=== PATIENT | female | born 2000 | race Two or more races ===

== ENCOUNTER 2024-07-20 16:00 | Observation (INO) | payer MEDICAID ==
[2024-07-20] MEDS ORDERED: PREN-96 PO (16:56)
== END 2024-07-20 17:48 | disposition home or self-care (01) ==
LOC: LDRP 16:00 → UNDOADMOB 16:00 → LDRP 16:22 → UNDODISOB 17:48
PROVIDERS: ADMIT Obstetrics & Gynecology; ATTEND Obstetrics & Gynecology
DX: O69.81X0 Labor and delivery complicated by cord around neck, without compression, not applicable or unspecified (principal); Z3A.38 38 weeks gestation of pregnancy; Z87.891 Personal history of nicotine dependence
CPT/HCPCS: 59025; 76818; 81002; 94760; G0378

== ENCOUNTER 2024-07-23 11:23 | Observation (INO) | payer MEDICAID ==
[~2024-07-23] VITALS: Ht 152.4 cm; Wt 59.0 kg
[~2024-07-23 11:23] MED LIST: PREN-96 PO
== END 2024-07-23 12:58 | disposition home or self-care (01) ==
LOC: UNDOADMOB 11:23 → LDRP 11:23
PROVIDERS: ADMIT Obstetrics & Gynecology; ATTEND Obstetrics & Gynecology
DX: O69.81X0 Labor and delivery complicated by cord around neck, without compression, not applicable or unspecified (principal); Z3A.39 39 weeks gestation of pregnancy; Z79.899 Other long term (current) drug therapy; Z98.890 Other specified postprocedural states
CPT/HCPCS: 59025; 76818; 81002; 94760; G0378

== ENCOUNTER 2024-07-27 07:50 | Inpatient (IN) | payer MEDICAID ==
[~2024-07-27] VITALS: Ht 157.5 cm; Wt 61.2 kg
--- NOTE | 2024-07-27 16:20 | DVHHP2 ---
OB CC & HPI Date Date of Admission: Jul 27, 2024 Patient Identification: : 2 Para: 0 EDC: Jul 29, 2024 EGA: 39+wks Chief Complaints: Reason for admission: induction of labor Indication for induction: other (pt desires due to nuchal cord) Admission Nurse Assessment Rev: No History of Present Complaints pt is admitted for iol due to nuchal cord,pt desires inuction .she denies vag bleeding or rom Past Medical History Cardiac: No pertinent Hx Pulmonary: No pertinent Hx Central Nervous System: No pertinent Hx GI: No pertinent Hx Hemotology/Oncology: No pertinent Hx Hepatobiliary: No pertinent Hx Psychiatric: No pertinent Hx Musculoskeletal: No pertinent Hx Rheumotologic: No pertinent Hx Infectious Disease: No peritnent Hx ENT: No pertinent Hx Renal/: No pertinent Hx Endocrine: No pertinent Hx Dermatology: No pertinent Hx Past Surgical History: No pertinent Hx OB History OB History Care: Good Care Ultrasounds: No ultrasounds, Normal mid trimester US Obstetrical Complications: None Medical Complications: None Allergies: Coded Allergies: NO KNOWN ALLERGIES (Unverified , 07/23/24) Home Meds Reported Medications Vit W/ Ferrous Fumara ( One Daily) Daily Tab, 1 TAB PO DAILY, #90 TAB 3 Refills 07/20/24 Family & Social History Family/Social History Blood Type: Unknown Rubella: unknown RPR/VDRL: Negative GBS Status: Negative HBsAG: Negative Review of Systems Constitutional: No symptom reported Ears, Nose, & Throat: No symptom reported Eyes: No symptom reported Pulmonary/Respiratory: No symptom reported Cardiovascular: No symptom reported Gastrointestinal: No symptom reported Genitourinary: No symptom reported Musculoskeletal: No symptom reported Skin: No symptom reported Psychiatric: No symptom reported Endocrine: No symptom reported Hemotologic/Lymphatic: No symptom reported OB Admission Exam Physical Exam HEENT: TMs Normal, Fontanelles Normal, Nasal Mucosa Normal, Eyes non-injected, Oropharynx Normal, PERRLA, Moist Membranes, EOMI Heart: Rhythm Normal Lungs: Clear Abdomen: Non tender Extremities: Normal Reflexes: Normal Cervical Dilatation: Fingertip Effacement: 25% Station: -3 Membranes: Intact Heart Rate: 130's Accelerations: Accelerations Present Decelerations: No Decelerations Short Term Variability: Present Longterm Variability: Average (6-25) Contractions on Admission: None OB Plan Plan Admitting Diagnosis: induction of labor Plan: Induction Other Plan: informed consent obtained ALEX AMAYA DO Jul 27, 2024 16:20
[2024-07-27] MEDS ORDERED: LIDOCAINE 2%HCL (LOCAL ANESTH.) INJ 20ML MDV IJ PRN (17:00)
[2024-07-27] MEDS ORDERED: BUTORPHANOL TARTRATE 2 MG/1 ML VIAL IV PRN ×2 (17:00)
[2024-07-27 18:11] LABS: Urine Bacteria MANY /hpf (None Seen); Urine Blood Negative /uL (Negative); Urine Budding Yeast FEW /hpf (None Seen); Urine Clarity Turbid (Clear); Urine Color Colorless (Yellow); Urine Hyaline Cast FEW /lpf (0 - 2); Urine Protein, UAD Negative (Negative); Urine Specific Gravity 1.004 (1.001-1.035); Urine Urobilinogen Normal (Negative); Urine WBC 12 /hpf (0 - 5); Urine pH 6.5 (5.0-9.0)
[2024-07-27 18:16] LABS: Basophils # (auto) 0 10 ^3/uL (0-0.2); Basophils % (auto) 0.5 % (0.0-2.0); Eosinophils # (auto) 0 10 ^3/uL (0-0.8); Eosinophils % (auto) 0.5 % (0.0-7.0); Hemoglobin 10.8 g/dL (12.2-16.2); Lymphocytes # (auto) 1.9 10 ^3/uL (0.4-5.4); Lymphocytes % (auto) 21.7 % (10.0-50.0); Mean Corpuscular Hemoglobin 27.2 pg (28.0-32.0); Mean Corpuscular Hgb Conc. 32.7 g/dL (32.0-36.0); Mean Corpuscular Volume 83.3 fL (80.0-100.0); Monocytes # (auto) 0.5 10 ^3/uL (0-1.3); Monocytes % (auto) 6.1 % (0.0-12.0); Neutrophils # (auto) 6.3 10 ^3/uL (1.6-8.6); Neutrophils % (auto) 71.2 % (37.0-80.0); Nucleated Red Blood Cells % 0.1 %; Platelet Count (auto) 284 10^3/uL (140-450); Red Blood Cells 3.96 10^6/uL (4.0-5.20); Red Cell Distribution Width 16.3 % (11.8-14.3); White Blood Cell 8.9 10^3/uL (4.4-10.8)
[2024-07-27] MEDS: ceFAZolin 1GM/50ML 50 ML IV SCH (18:19)
[2024-07-27 18:31] LABS: Amphetamine Screen, Urine Neg (NEGATIVE); Barbiturate Scree,Urine Neg (NEGATIVE); Benzodiazephine Screen, Urine Neg (NEGATIVE); Cannabinoid Screen, Urine Neg (NEGATIVE); Cocaine Screen, Urine Neg (NEGATIVE); Opiate Scree,Urine Neg (NEGATIVE); Phencyclidine Screen, Urine Neg (NEGATIVE)
[2024-07-27 18:32] LABS: Alanine Aminotransferase 11 U/L (7-40); Albumin 3.8 g/dL (3.2-4.8); Alkaline Phosphatase 207 U/L (46-116); Anion Gap 8 (5-15); Aspartate Aminotransferase 17 U/L (13-40); BUN/Creatinine Ratio 16.3 (10.0-20.0); Blood Urea Nitrogen 7 mg/dL (9-23); Calcium 9.5 mg/dL (8.7-10.4); Carbon Dioxide 23 mmol/L (20-31); Chloride 107 mmol/L (98-107); Glucose 69 mg/dL (74-106); Potassium 3.8 mmol/L (3.5-5.1); Sodium 138 mmol/L (136-145)
[2024-07-27 18:33] LABS: Bilirubin, Total 0.4 mg/dL (0.2-1.0); Total Protein 6.7 g/dL (5.7-8.2)
[2024-07-27 18:37] LABS: INR 0.94 (0.9-1.15); Partial Thromboplastin Time 27.9 SEC (24.5-34.5)
[2024-07-27] MEDS: miSOPROStol 50 MCG per PRE-CUT 1/2 TAB PO PRN (19:03)
--- NOTE | 2024-07-27 19:06 | DVHPN2 ---
[facility] Labor Progress Note Date and Time Seen Date Seen: Jul 27, 2024 Time Seen: 19:01 Subjective Patient reports: No new complaints Subjective Comment Feels occasional mild UC's.. Objective Vital Signs VSS Monitoring Method Monitoring Method: External Heart Rate Heart Rate Baseline: 130 Heart Rate Variability: Moderate Presence of FHR Accelerations: Yes Presence of FHR Decelerations: No Changes in Trends of Patterns: No Are all 5 Components of the FH: Yes Contractions Contractions Frequency: Other (Rare) Duration of Contraction: 50 Contractions Intensity: Mild Contractions Resting Tone: Relaxed Membranes Membranes: Intact Vaginal Exam Vag Exam Deferred: Yes Medications Medications - Pitocin: No Medication - Epidural: No Lab Results Lab Results Current Medications Medications (Trade) Dose Ordered Sig/Leslie Start Time Stop Time Status Last Admin Dose Admin Lactated Ringer's 1,000 ml @ 125 mls/hr Q8H 07/27/24 17:00 Witch Constanza (Tucks) 1 pad PRN PRN 07/27/24 17:00 Sodium Lauryl Sulfate (Phisoderm) 240 ml PRN PRN 07/27/24 17:00 Benzocaine (Dermoplast) 1 applic PRN PRN 07/27/24 17:00 Butorphanol Tartrate (Stadol Injection) 1 mg Q4HPRN PRN 07/27/24 17:00 Butorphanol Tartrate (Stadol Injection) 2 mg Q4HPRN PRN 07/27/24 17:00 Misoprostol (Cytotec) 50 mcg Q4HPRN PRN 07/27/24 17:00 Lidocaine HCl (Xylocaine) 20 ml ONCE PRN 07/27/24 17:00 Cefazolin Sodium 50 ml @ 100 mls/hr Q8H 07/27/24 18:00 07/27/24 18:19 100 MLS/HR Laboratory Tests Test 07/27/24 17:59 07/27/24 17:32 Range/Units Urine Color Colorless Yellow Urine Clarity Turbid H Clear Urine pH 6.5 5.0-9.0 Urine Specific [place] 1.004 1.001-1.035 Urine Protein Negative Negative Urine Ketones Negative Negative Urine Blood Negative Negative /uL Urine Nitrite Negative Negative Urine Bilirubin Negative Negative Urine Urobilinogen Normal Negative mg/dL Urine Leukocyte Esterase 2+ Negative /uL Urine RBC 5 0 - 4 /hpf Urine WBC 12 0 - 5 /hpf Urine Squamous Epithelial Cells Few <5 /hpf Urine Bacteria Many H None Seen /hpf Urine Hyaline Casts Few 0 - 2 /lpf Urine Yeast (Budding) Few None Seen /hpf Urine Glucose Normal Normal mg/dL Urine Opiates Screen Neg NEGATIVE Urine Fentanyl Screen Neg NEGATIVE Urine Barbiturates Screen Neg NEGATIVE Urine Phencyclidine Screen Neg NEGATIVE Urine Amphetamines Screen Neg NEGATIVE Urine Benzodiazepines Screen Neg NEGATIVE Urine Cocaine Screen Neg NEGATIVE Urine Cannabinoids Screen Neg NEGATIVE White Blood Count 8.9 4.4-10.8 10^3/uL Red Blood Count 3.96 L 4.0-5.20 10^6/uL Hemoglobin 10.8 L 12.2-16.2 g/dL Hematocrit 33.0 L 36.0-46.0 % Mean Corpuscular Volume 83.3 80.0-100.0 fL Mean Corpuscular Hemoglobin 27.2 L 28.0-32.0 pg Mean Corpuscular Hemoglobin Concent 32.7 32.0-36.0 g/dL Red Cell Distribution Width 16.3 H 11.8-14.3 % Platelet Count 284 140-450 10^3/uL Mean Platelet Volume 7.7 6.9-10.8 fL Neutrophils (%) (Auto) 71.2 37.0-80.0 % Lymphocytes (%) (Auto) 21.7 10.0-50.0 % Monocytes (%) (Auto) 6.1 0.0-12.0 % Eosinophils (%) (Auto) 0.5 0.0-7.0 % Basophils (%) (Auto) 0.5 0.0-2.0 % Neutrophils # (Auto) 6.3 1.6-8.6 10 ^3/uL Lymphocytes # (Auto) 1.9 0.4-5.4 10 ^3/uL Monocytes # (Auto) 0.5 0-1.3 10 ^3/uL Eosinophils # (Auto) 0 0-0.8 10 ^3/uL Basophils # (Auto) 0 0-0.2 10 ^3/uL Nucleated Red Blood Cells 0.1 % Prothrombin Time 10.0 9.3-11.8 sec Prothrombin Time INR 0.94 0.9-1.15 Activated Partial Thromboplast Time 27.9 24.5-34.5 SEC Sodium Level 138 136-145 mmol/L Potassium Level 3.8 3.5-5.1 mmol/L Chloride Level 107 98-107 mmol/L Carbon Dioxide Level 23 20-31 mmol/L Anion Gap 8 5-15 Blood Urea Nitrogen 7 L 9-23 mg/dL Creatinine 0.43 L 0.550-1.02 mg/dL Glomerular Filtration Rate Calc 139 >90 mL/min BUN/Creatinine Ratio 16.3 10.0-20.0 Serum Glucose 69 L 74-106 mg/dL Calcium Level 9.5 8.7-10.4 mg/dL Total Bilirubin 0.4 0.2-1.0 mg/dL Aspartate Amino Transferase (AST) 17 13-40 U/L Alanine Aminotransferase (ALT) 11 7-40 U/L Alkaline Phosphatase 207 H 46-116 U/L Total Protein 6.7 5.7-8.2 g/dL Albumin 3.8 3.2-4.8 g/dL Rapid Plasma Reagin Pending Hepatitis C Antibody Pending Assessment Assessment IUP at 39.5 weeks IOL Plan Plan Start Cytotec 50mcg q 4 Continue to monitor Reassess as needed Plan discussed with: Patient, Other (RN) ALTAGRACIA MCGILL CNM Jul 27, 2024 19:06
--- NOTE | 2024-07-27 20:08 | DVH ---
US OB LIMITED CLINICAL HISTORY: presentation COMPARISON: 07/23/2024 TECHNIQUE: Real-time grayscale, color flow and M-mode imaging of the gravid uterus is performed. FINDINGS: Single living intrauterine gestation. heart rate 133 beats per minute. Cephalic presentation. Amniotic fluid index 14.2 cm. Placenta is posterior without definite evidence of previa or abruption at this time. IMPRESSION: Single living intrauterine gestation as above.
[2024-07-27 20:22] LABS: COVID19 ANTIGEN SOFIA FIA NEGATIVE (NEGATIVE)
[2024-07-27 20:23] LABS: Rapid Influenza A Negative (Negative); Rapid Influenza B Negative (Negative)
[2024-07-27] MEDS: NALOXONE HCL 0.4 MG/ML VIAL IV ONE (23:30)
[2024-07-27] MEDS: LIDOCAINE HCL 2 %PF INJ 10ML AMP IJ ONE (23:30)
[2024-07-28] MEDS: fentaNYL CITRATE 100 MCG/2 ML VL IV ONE (00:19)
[2024-07-28] MEDS: PHISODERM TOP SOLN 240ML BTL TOP PRN (00:26)
[2024-07-28] MEDS: WITCH HAZEL-GLYCERIN PAD TOP PRN (00:26)
[2024-07-28] MEDS: DERMOPLAST 60ML BOTTLE TOP PRN (00:26)
[2024-07-28] MEDS: ROPIVACAINE HCL 200 ML ONE (00:26)
[2024-07-28] MEDS: LACTATED RINGER'S 1,000 ML IV ONE (00:27)
[2024-07-28] MEDS: LACTATED RINGER'S 1,000 ML IV SCH (00:35)
--- NOTE | 2024-07-28 00:38 | EPIDURAL ---
Anesthesia Procedural Note - Epidural Informed consent obtained?: Yes Medication Administered: Fentanyl 100 mcg Sterile prept drape: Yes Spinal level of insertion: L4-L5 Test dose of lidocaine & Epine: Negative Infusion started: Yes Start time: 00:01 End time: 00:20 Procedure description Procedure description: Called for labor analgesia. Chart reviewed, history taken and patient examined at 0001 (BP 111/66 HR 96 spO2 98). Patient is at 39+ weeks gestation here for induction of labor, requesting epidural. Informed consent for CSE obtained. Sitting position, sterile prep and drape. Time out done at 0004 (BP 103/58 HR 93 spO2 98). L4-5 space infiltrated with 1% lido. Epidural needle placed with TAINA at 4.5cm. 25G spinal needle +clear CSF. 15mcg fentanyl given IT at 0007 (BP 111/61 HR 100 spO2 99). Catheter secured at 10cm. Aspiration and test dose (3cc 1.5% lido with epi) negative at 0009 (BP 110/61 HR 94 spO2 99). 85mcg fentanyl given via epidural at 0010. Patient reports good pain relief. 0.2% [place] [address] (BP 101/59 HR 100 spO2 98). Will follow as needed. SANDEE DENSON MD Jul 28, 2024 00:38
[2024-07-28] MEDS: ONDANSETRON HCL 4 MG/2 ML VIAL IV PRN (02:26)
--- NOTE | 2024-07-28 02:39 | DVHPN2 ---
[facility] Labor Progress Note Date and Time Seen Date Seen: Jul 28, 2024 Time Seen: 02:00 Subjective Patient reports: No new complaints Subjective Comment Comfort level is optimal with epidural in place Objective Vital Signs 96/63-81-16. Pt is afebrile Monitoring Method Monitoring Method: External Heart Rate Heart Rate Baseline: 140 Heart Rate Variability: Moderate Presence of FHR Accelerations: Yes Presence of FHR Decelerations: No Changes in Trends of Patterns: No Are all 5 Components of the FH: Yes Contractions Contractions Frequency: Other (q 2-5 min) Duration of Contraction: 50 Contractions Intensity: Mild Contractions Resting Tone: Relaxed Membranes Membranes: Intact Vaginal Exam Vag Exam Deferred: No (Performed by CNM) Vaginal Exam Dilation: 7 Vaginal Exam Effacement: 100 Vaginal Exam Station: 0 Vaginal Exam Presentation: VTX Vaginal Exam Show: Small Medications Medications - Pitocin: No Medication - Epidural: Yes Medication - Other Cytotec x 1 only Lab Results Lab Results Vital Signs Date Time Temp Pulse Resp B/P (MAP) Pulse Ox O2 Delivery O2 Flow Rate FiO2 07/28/24 00:19 111/66 Current Medications Medications (Trade) Dose Ordered Sig/Leslie Start Time Stop Time Status Last Admin Dose Admin Lactated Ringer's 1,000 ml @ 125 mls/hr Q8H 07/27/24 17:00 07/28/24 00:35 125 MLS/HR Witch Constanza (Tucks) 1 pad PRN PRN 07/27/24 17:00 07/28/24 00:26 1 PAD Sodium Lauryl Sulfate (Phisoderm) 240 ml PRN PRN 07/27/24 17:00 07/28/24 00:26 240 ML Benzocaine (Dermoplast) 1 applic PRN PRN 07/27/24 17:00 07/28/24 00:26 1 APPLIC Butorphanol Tartrate (Stadol Injection) 1 mg Q4HPRN PRN 07/27/24 17:00 Butorphanol Tartrate (Stadol Injection) 2 mg Q4HPRN PRN 07/27/24 17:00 Misoprostol (Cytotec) 50 mcg Q4HPRN PRN 07/27/24 17:00 07/27/24 19:03 50 MCG Lidocaine HCl (Xylocaine) 20 ml ONCE PRN 07/27/24 17:00 Cefazolin Sodium 50 ml @ 100 mls/hr Q8H 07/27/24 18:00 07/28/24 02:07 100 MLS/HR Naloxone HCl (Narcan) 0.2 mg PRN ONCE 07/27/24 23:30 07/27/24 23:33 DC Ephedrine Sulfate (ePHEDrine SULFATE) 10 mg PRN ONCE 07/27/24 23:30 07/27/24 23:33 DC Fentanyl Citrate 100 mcg ONCE ONCE 07/27/24 23:30 07/27/24 23:33 DC 07/28/24 00:19 100 MCG Lidocaine HCl (Xylocaine-Pf 2% Injection) 10 ml ONCE ONCE 07/27/24 23:30 07/27/24 23:33 DC Lactated Ringer's 1,000 ml @ 1,000 mls/hr Q1H ONCE 07/27/24 23:30 07/28/24 00:29 DC 07/28/24 00:27 1,000 MLS/HR Oxytocin 500 ml @ 999 mls/hr Q31M ONCE 07/28/24 00:00 07/28/24 00:30 DC Oxytocin 500 ml @ 125 mls/hr Q4H ONCE 07/28/24 00:30 07/28/24 04:29 Ondansetron HCl (Zofran) 4 mg Q4HPRN PRN 07/28/24 02:30 07/28/24 02:26 4 MG Laboratory Tests Test 07/27/24 19:51 07/27/24 17:59 07/27/24 17:32 Range/Units Influenza Type A Antigen Negative Negative Influenza Type B Antigen Negative Negative SARS-CoV-2 Antigen (Rapid) Negative NEGATIVE Urine Color Colorless Yellow Urine Clarity Turbid H Clear Urine pH 6.5 5.0-9.0 Urine Specific [place] 1.004 1.001-1.035 Urine Protein Negative Negative Urine Ketones Negative Negative Urine Blood Negative Negative /uL Urine Nitrite Negative Negative Urine Bilirubin Negative Negative Urine Urobilinogen Normal Negative mg/dL Urine Leukocyte Esterase 2+ Negative /uL Urine RBC 5 0 - 4 /hpf Urine WBC 12 0 - 5 /hpf Urine Squamous Epithelial Cells Few <5 /hpf Urine Bacteria Many H None Seen /hpf Urine Hyaline Casts Few 0 - 2 /lpf Urine Yeast (Budding) Few None Seen /hpf Urine Glucose Normal Normal mg/dL Urine Opiates Screen Neg NEGATIVE Urine Fentanyl Screen Neg NEGATIVE Urine Barbiturates Screen Neg NEGATIVE Urine Phencyclidine Screen Neg NEGATIVE Urine Amphetamines Screen Neg NEGATIVE Urine Benzodiazepines Screen Neg NEGATIVE Urine Cocaine Screen Neg NEGATIVE Urine Cannabinoids Screen Neg NEGATIVE White Blood Count 8.9 4.4-10.8 10^3/uL Red Blood Count 3.96 L 4.0-5.20 10^6/uL Hemoglobin 10.8 L 12.2-16.2 g/dL Hematocrit 33.0 L 36.0-46.0 % Mean Corpuscular Volume 83.3 80.0-100.0 fL Mean Corpuscular Hemoglobin 27.2 L 28.0-32.0 pg Mean Corpuscular Hemoglobin Concent 32.7 32.0-36.0 g/dL Red Cell Distribution Width 16.3 H 11.8-14.3 % Platelet Count 284 140-450 10^3/uL Mean Platelet Volume 7.7 6.9-10.8 fL Neutrophils (%) (Auto) 71.2 37.0-80.0 % Lymphocytes (%) (Auto) 21.7 10.0-50.0 % Monocytes (%) (Auto) 6.1 0.0-12.0 % Eosinophils (%) (Auto) 0.5 0.0-7.0 % Basophils (%) (Auto) 0.5 0.0-2.0 % Neutrophils # (Auto) 6.3 1.6-8.6 10 ^3/uL Lymphocytes # (Auto) 1.9 0.4-5.4 10 ^3/uL Monocytes # (Auto) 0.5 0-1.3 10 ^3/uL Eosinophils # (Auto) 0 0-0.8 10 ^3/uL Basophils # (Auto) 0 0-0.2 10 ^3/uL Nucleated Red Blood Cells 0.1 % Prothrombin Time 10.0 9.3-11.8 sec Prothrombin Time INR 0.94 0.9-1.15 Activated Partial Thromboplast Time 27.9 24.5-34.5 SEC Sodium Level 138 136-145 mmol/L Potassium Level 3.8 3.5-5.1 mmol/L Chloride Level 107 98-107 mmol/L Carbon Dioxide Level 23 20-31 mmol/L Anion Gap 8 5-15 Blood Urea Nitrogen 7 L 9-23 mg/dL Creatinine 0.43 L 0.550-1.02 mg/dL Glomerular Filtration Rate Calc 139 >90 mL/min BUN/Creatinine Ratio 16.3 10.0-20.0 Serum Glucose 69 L 74-106 mg/dL Calcium Level 9.5 8.7-10.4 mg/dL Total Bilirubin 0.4 0.2-1.0 mg/dL Aspartate Amino Transferase (AST) 17 13-40 U/L Alanine Aminotransferase (ALT) 11 7-40 U/L Alkaline Phosphatase 207 H 46-116 U/L Total Protein 6.7 5.7-8.2 g/dL Albumin 3.8 3.2-4.8 g/dL Rapid Plasma Reagin Pending Hepatitis C Antibody Negative Negative Assessment Assessment IUP at term Active labor with good progress Plan Plan Continue expectant management Anticipate Plan discussed with: Patient, Other (RN) ALTAGRACIA MCGILL CNM Jul 28, 2024 02:39
[2024-07-28] MEDS: ePHEDrine SULFATE 50 MG/ML AMP IV ONE (04:17)
--- NOTE | 2024-07-28 07:57 | DVHPN2 ---
CNM Labor Progress Note Date and Time Seen Date Seen: Jul 28, 2024 Time Seen: 07:30 Subjective Patient reports: No new complaints Objective Vital Signs VSS Monitoring Method Monitoring Method: External Heart Rate Heart Rate Baseline: 130 Heart Rate Variability: Moderate Presence of FHR Accelerations: Yes Presence of FHR Decelerations: Yes Heart Rate Type of Decel: Variable Decelerations, Late Decelerations Changes in Trends of Patterns: No Are all 5 Components of the FH: Yes Contractions Contractions Frequency: Other (q2-3min) Duration of Contraction: 60 Contractions Intensity: Moderate Contractions Resting Tone: Relaxed Membranes Membranes: Ruptured (AROM at 0730) Amniotic Fluid Color: TREATMENT TECHNICIAN Meconium (Thick) Vaginal Exam Vag Exam Deferred: No Vaginal Exam Dilation: 10 Vaginal Exam Effacement: 100 Vaginal Exam Station: 0 Vaginal Exam Presentation: VTX Vaginal Exam Show: Small Medications Medications - Pitocin: No Medication - Epidural: Yes Medication - Other Ancef IVPB q 8hr Lab Results Lab Results Vital Signs Date Time Temp Pulse Resp B/P (MAP) Pulse Ox O2 Delivery O2 Flow Rate FiO2 07/28/24 00:19 111/66 Current Medications Medications (Trade) Dose Ordered Sig/Leslie Start Time Stop Time Status Last Admin Dose Admin Lactated Ringer's 1,000 ml @ 125 mls/hr Q8H 07/27/24 17:00 07/28/24 00:35 125 MLS/HR Witch Constanza (Tucks) 1 pad PRN PRN 07/27/24 17:00 07/28/24 00:26 1 PAD Sodium Lauryl Sulfate (Phisoderm) 240 ml PRN PRN 07/27/24 17:00 07/28/24 00:26 240 ML Benzocaine (Dermoplast) 1 applic PRN PRN 07/27/24 17:00 07/28/24 00:26 1 APPLIC Butorphanol Tartrate (Stadol Injection) 1 mg Q4HPRN PRN 07/27/24 17:00 07/28/24 03:28 DC Butorphanol Tartrate (Stadol Injection) 2 mg Q4HPRN PRN 07/27/24 17:00 07/28/24 03:28 DC Misoprostol (Cytotec) 50 mcg Q4HPRN PRN 07/27/24 17:00 07/27/24 19:03 50 MCG Lidocaine HCl (Xylocaine) 20 ml ONCE PRN 07/27/24 17:00 Cefazolin Sodium 50 ml @ 100 mls/hr Q8H 07/27/24 18:00 07/28/24 02:07 100 MLS/HR Naloxone HCl (Narcan) 0.2 mg PRN ONCE 07/27/24 23:30 07/27/24 23:33 DC Ephedrine Sulfate (ePHEDrine SULFATE) 10 mg PRN ONCE 07/27/24 23:30 07/27/24 23:33 DC 07/28/24 04:17 10 MG Fentanyl Citrate 100 mcg ONCE ONCE 07/27/24 23:30 07/27/24 23:33 DC 07/28/24 00:19 100 MCG Lidocaine HCl (Xylocaine-Pf 2% Injection) 10 ml ONCE ONCE 07/27/24 23:30 07/27/24 23:33 DC Lactated Ringer's 1,000 ml @ 1,000 mls/hr Q1H ONCE 07/27/24 23:30 07/28/24 00:29 DC 07/28/24 00:27 1,000 MLS/HR Oxytocin 500 ml @ 999 mls/hr Q31M ONCE 07/28/24 00:00 07/28/24 00:30 DC Oxytocin 500 ml @ 125 mls/hr Q4H ONCE 07/28/24 00:30 07/28/24 04:29 DC Ondansetron HCl (Zofran) 4 mg Q4HPRN PRN 07/28/24 02:30 07/28/24 02:26 4 MG Laboratory Tests Test 07/27/24 19:51 07/27/24 17:59 07/27/24 17:32 Range/Units Influenza Type A Antigen Negative Negative Influenza Type B Antigen Negative Negative SARS-CoV-2 Antigen (Rapid) Negative NEGATIVE Urine Color Colorless Yellow Urine Clarity Turbid H Clear Urine pH 6.5 5.0-9.0 Urine Specific [place] 1.004 1.001-1.035 Urine Protein Negative Negative Urine Ketones Negative Negative Urine Blood Negative Negative /uL Urine Nitrite Negative Negative Urine Bilirubin Negative Negative Urine Urobilinogen Normal Negative mg/dL Urine Leukocyte Esterase 2+ Negative /uL Urine RBC 5 0 - 4 /hpf Urine WBC 12 0 - 5 /hpf Urine Squamous Epithelial Cells Few <5 /hpf Urine Bacteria Many H None Seen /hpf Urine Hyaline Casts Few 0 - 2 /lpf Urine Yeast (Budding) Few None Seen /hpf Urine Glucose Normal Normal mg/dL Urine Opiates Screen Neg NEGATIVE Urine Fentanyl Screen Neg NEGATIVE Urine Barbiturates Screen Neg NEGATIVE Urine Phencyclidine Screen Neg NEGATIVE Urine Amphetamines Screen Neg NEGATIVE Urine Benzodiazepines Screen Neg NEGATIVE Urine Cocaine Screen Neg NEGATIVE Urine Cannabinoids Screen Neg NEGATIVE White Blood Count 8.9 4.4-10.8 10^3/uL Red Blood Count 3.96 L 4.0-5.20 10^6/uL Hemoglobin 10.8 L 12.2-16.2 g/dL Hematocrit 33.0 L 36.0-46.0 % Mean Corpuscular Volume 83.3 80.0-100.0 fL Mean Corpuscular Hemoglobin 27.2 L 28.0-32.0 pg Mean Corpuscular Hemoglobin Concent 32.7 32.0-36.0 g/dL Red Cell Distribution Width 16.3 H 11.8-14.3 % Platelet Count 284 140-450 10^3/uL Mean Platelet Volume 7.7 6.9-10.8 fL Neutrophils (%) (Auto) 71.2 37.0-80.0 % Lymphocytes (%) (Auto) 21.7 10.0-50.0 % Monocytes (%) (Auto) 6.1 0.0-12.0 % Eosinophils (%) (Auto) 0.5 0.0-7.0 % Basophils (%) (Auto) 0.5 0.0-2.0 % Neutrophils # (Auto) 6.3 1.6-8.6 10 ^3/uL Lymphocytes # (Auto) 1.9 0.4-5.4 10 ^3/uL Monocytes # (Auto) 0.5 0-1.3 10 ^3/uL Eosinophils # (Auto) 0 0-0.8 10 ^3/uL Basophils # (Auto) 0 0-0.2 10 ^3/uL Nucleated Red Blood Cells 0.1 % Prothrombin Time 10.0 9.3-11.8 sec Prothrombin Time INR 0.94 0.9-1.15 Activated Partial Thromboplast Time 27.9 24.5-34.5 SEC Sodium Level 138 136-145 mmol/L Potassium Level 3.8 3.5-5.1 mmol/L Chloride Level 107 98-107 mmol/L Carbon Dioxide Level 23 20-31 mmol/L Anion Gap 8 5-15 Blood Urea Nitrogen 7 L 9-23 mg/dL Creatinine 0.43 L 0.550-1.02 mg/dL Glomerular Filtration Rate Calc 139 >90 mL/min BUN/Creatinine Ratio 16.3 10.0-20.0 Serum Glucose 69 L 74-106 mg/dL Calcium Level 9.5 8.7-10.4 mg/dL Total Bilirubin 0.4 0.2-1.0 mg/dL Aspartate Amino Transferase (AST) 17 13-40 U/L Alanine Aminotransferase (ALT) 11 7-40 U/L Alkaline Phosphatase 207 H 46-116 U/L Total Protein 6.7 5.7-8.2 g/dL Albumin 3.8 3.2-4.8 g/dL Rapid Plasma Reagin Pending Hepatitis C Antibody Negative Negative Assessment Assessment 24yo IUP@39.6wks Induction of Labor Category II EFM AROM Thick Meconium GBS negative Plan Plan Expectant management for now due to frequent UCs monitoring per order Epidural for pain management Frequent position changes in bed encouraged Intrauterine resuscitation PRN Anticipate Plan discussed with: Patient YUE EVANS EDITHMIDWIFE Jul 28, 2024 07:57
[2024-07-28] MEDS: LACT. RINGERS/OXYTOCIN 20UNITS 500 ML IV ONE ×2 (10:21)
[2024-07-28] MEDS: MINERAL OIL TOPICAL 10ml TOP ONE (10:26)
[2024-07-28] MEDS: IBUPROFEN 600 MG TAB PO PRN (12:21)
[2024-07-28] MEDS: ACETAMINOPHEN 325 MG TAB PO PRN (14:03)
--- NOTE | 2024-07-28 14:32 | LDN2 ---
Labor and Delivery Note Date 07/28/24 Age 24 2 Para 1 AB 1 EDC 11-6 EGA 39wks Diagnosis iol for nuchal cord Vaginal Delivery: VTX Placenta: Spontaneous Sex: Female Weight 2690g Apgars 8-9 Nuchal Cord Transected: Yes Amniotic Fluid: Thick Anesthesia epidural Episiotomy: Yes Extension: Yes (midline epis with 2nd deg perineal lac) Repaired with 2-0 chromic EBL 300ml Labs Blood Bank 07/27/24 17:32: Blood Type O POSITIVE Complications none Conditions stable Comments/Significant Med Alan spec exam no cxal lac,pt informed that need for vaccum and epis is a neccessity due to mec and double nuchal cord,pt agreed since she had very bad pushing effort and heart was dropping alot subseq vaccum applied successfully with 2 pull baby del and cord blood gases were obtained ALEX AMAYA DO Jul 28, 2024 14:32
[2024-07-28 15:00] VITALS: BP 98/63; PULSE 90; RESP 18; TEMP 97.8; O2SAT 97
[2024-07-28 18:47] VITALS: BP 95/55; PULSE 90; RESP 16; TEMP 97.7; O2SAT 97
[2024-07-28] MEDS: DOCUSATE SOD 100 MG CAP PO SCH (22:04)
[2024-07-28] MEDS ORDERED: FER325T PO (22:34)
[2024-07-28] MEDS ORDERED: PREN-96 PO (22:34)
[2024-07-28] MEDS ORDERED: DOCU-265 PO (22:34)
[2024-07-28] MEDS ORDERED: IBU600T PO (22:34)
[2024-07-28 23:20] VITALS: BP 85/47; PULSE 88; RESP 15; TEMP 97.7; O2SAT 96
--- NOTE | 2024-07-29 01:39 | DVHDS2 ---
Obstetrics Discharge Summary Obstetrics Discharge Summary Date of Admission: Jul 27, 2024 Date of Discharge: Jul 29, 2024 Reason For Admission: Induction of Labor (for nuchal cord x2) Procedures: NST Intrapartum Procedures: Vacuum Extraction, Episiotomy (midline, repaired by Dr. Neff) Procedures: Antibiotics, Hct/date: (07/29/24), Hgb/date: (07/29/24) Operative Complicat: Laceration (2nd degree perineal, repaired by Dr. Neff) Discharge Diagnosis: Term -Delivered Discharge Information: Activity (as tolerated, no heavy lifting and nothing in the vagina for 6 weeks), Diet (Routine), Medications (Rx sent), Instructions (Routine, seismic interpreter Renzo #[id number] used), Discharge to (Home), Accompanied by (partner), Discarge date (07/29/24) PERCY ELI CNM Jul 29, 2024 01:39
--- NOTE | 2024-07-29 01:39 | DVHPN2 ---
Progress Note Date Seen: Jul 29, 2024 Subjective S: bleeding is less, eating food without issues, denies lightheaded/dizziness, pain well controlled with oral medications, no concerns with urinating, passing flatus, no BM yet, ambulating well, using breast pump vital signs Vital Sign Date Time Temp Pulse Resp B/P (MAP) Pulse Ox O2 Delivery O2 Flow Rate FiO2 07/28/24 23:20 97.7 88 15 85/47 (60) 96 97.7 07/28/24 18:47 Room Air Total Intake and Output 07/28/24 07/28/24 07/29/24 15:00 23:00 07:00 Intake Total 350 ml Output Total 500 ml 1200 ml Balance -500 ml -850 ml medications Current Medications Medications Dose Ordered Sig/Leslie Route Start Time Stop Time Status Last Admin Dose Admin Lactated Ringer's 1,000 ml @ 125 mls/hr Q8H IV 07/27/24 17:00 07/28/24 10:26 125 MLS/HR Buster Apodaca 1 pad PRN PRN TOP 07/27/24 17:00 07/28/24 10:25 1 PAD Sodium Lauryl Sulfate 240 ml PRN PRN TOP 07/27/24 17:00 07/28/24 10:25 240 ML Benzocaine 1 applic PRN PRN TOP 07/27/24 17:00 07/28/24 10:25 1 APPLIC Cefazolin Sodium 50 ml @ 100 mls/hr Q8H IV 07/27/24 18:00 07/28/24 17:52 100 MLS/HR Ondansetron HCl 4 mg Q4HPRN PRN IV 07/28/24 02:30 07/28/24 02:26 4 MG Ibuprofen 600 mg Q6HP PRN PO 07/28/24 12:00 07/28/24 22:04 600 MG Docusate Calcium 240 mg DAILY PO 07/29/24 10:00 Acetaminophen 650 mg Q4HP PRN PO 07/28/24 12:00 07/28/24 23:51 650 MG Docusate Sodium 200 mg HS PO 07/28/24 22:00 07/28/24 22:04 200 MG laboratory and microbiology Laboratory Tests 07/27/24 17:32 Test 07/27/24 17:32 Range/Units Serum Glucose 69 L 74-106 mg/dL Objective O: VSS Chest: heart sounds normal and lung sounds clear bilaterally Abd: soft, non-tender, fundus at U/firm/midline, active bowel sounds, no rebound or guarding Perineum: edema noted, sutures intact, edges well approximated, no erythema noted Ext: Non-tender, No edema, 2+ BLE DTRs Lochia: minimal See lab results Problems(with codes): (1) Episiotomy wound (2) Vacuum-assisted vaginal delivery (3) Precipitous drop in hematocrit Assessment/Plan A: 24yo now PPD#1 s/p Anemia Rh+ Rubella Immune Pumping breast milk, baby in NICU at [facility] [place] Pain control with PO medications Bowel regimen P: D/C home today Rx sent to pharmacy precautions and preeclampsia warning signs reviewed F/U with Dr. Neff at [facility] maternal [facility] clinic in 2 wks Plan discussed with: Patient PERCY ELI SUZANNE Jul 29, 2024 01:39
[2024-07-29 02:56] VITALS: BP 86/52; PULSE 83; RESP 14; TEMP 98.3; O2SAT 97
[2024-07-29 05:08] LABS: RPR Non Reactive (Non Reactive)
[2024-07-29 06:45] VITALS: BP 82/56; PULSE 77; RESP 18; TEMP 97.7; O2SAT 98
[2024-07-29] MEDS: TETANUS-DIPTH-ACEL PERTUSSIS 0.5ML SYR Tdap IM ONE (07:09)
[2024-07-29 07:32] LABS: Basophils # (auto) 0 10 ^3/uL (0-0.2); Basophils % (auto) 0.2 % (0.0-2.0); Hemoglobin 8.5 g/dL (12.2-16.2); Lymphocytes # (auto) 2.1 10 ^3/uL (0.4-5.4); Lymphocytes % (auto) 14.8 % (10.0-50.0)
[2024-07-29 07:34] LABS: Eosinophils # (auto) 0.1 10 ^3/uL (0-0.8); Eosinophils % (auto) 0.4 % (0.0-7.0); Hematocrit 26.3 % (36.0-46.0); Mean Corpuscular Hemoglobin 26.9 pg (28.0-32.0); Mean Corpuscular Hgb Conc. 32.3 g/dL (32.0-36.0); Mean Corpuscular Volume 83.3 fL (80.0-100.0); Monocytes # (auto) 0.8 10 ^3/uL (0-1.3); Monocytes % (auto) 5.7 % (0.0-12.0); Neutrophils # (auto) 11.3 10 ^3/uL (1.6-8.6); Neutrophils % (auto) 78.9 % (37.0-80.0); Platelet Count (auto) 240 10^3/uL (140-450); Red Blood Cells 3.16 10^6/uL (4.0-5.20); Red Cell Distribution Width 16.7 % (11.8-14.3); White Blood Cell 14.3 10^3/uL (4.4-10.8)
[2024-07-29] MEDS: DOCUSATE CALCIUM 240 MG CAP PO SCH (10:00)
== END 2024-07-29 10:10 | disposition home or self-care (01) | DRG 560 ==
LOC: LDRP 15:56 → OBSVTOIN 15:57 → LDRP 07-28 12:55
PROVIDERS: ADMIT Obstetrics & Gynecology; ATTEND Obstetrics & Gynecology
PROC: 10D07Z6 Extraction of Products of Conception, Vacuum, Via Natural or Artificial Opening (ICD-10-PCS; principal; 2024-07-28)
PROC: 0W8NXZZ Division of Female Perineum, External Approach (ICD-10-PCS; 2024-07-28)
PROC: 0KQM0ZZ Repair Perineum Muscle, Open Approach (ICD-10-PCS; 2024-07-28)
PROC: 3E0DXGC Introduction of Other Therapeutic Substance into Mouth and Pharynx, External Approach (ICD-10-PCS; 2024-07-28)
PROC: 3E0R3BZ Introduction of Anesthetic Agent into Spinal Canal, Percutaneous Approach (ICD-10-PCS; 2024-07-28)
PROC: 00HU33Z Insertion of Infusion Device into Spinal Canal, Percutaneous Approach (ICD-10-PCS; 2024-07-28)
DX: O69.81X0 Labor and delivery complicated by cord around neck, without compression, not applicable or unspecified (principal); Z37.0 Single live birth; O70.1 Second degree perineal laceration during delivery; O77.0 Labor and delivery complicated by meconium in amniotic fluid; Z20.822 Contact with and (suspected) exposure to COVID-19; O90.81 Anemia of the puerperium; Z3A.39 39 weeks gestation of pregnancy
CPT/HCPCS: 36415; 59025; 59409; 62282; 76815; 80053; 80307; 81001; 81002; 85025; 85610; 85730; 86592; 86803; 86850; 86900; 86901; 87426; 87804; 90715; 94760; 96360; 96361; 96365; 96366; 96374; G0378; J2405; J2590

== ENCOUNTER 2025-02-02 19:58 | Emergency (ER) | payer MEDICAID ==
[~2025-02-02 19:58] MED LIST changes: +DOCU-265 PO; +FER325T PO; +IBU600T PO
== END 2025-02-02 21:48 | disposition left against medical advice (07) ==
LOC: ER 19:58
DX: J02.9 Acute pharyngitis, unspecified (principal); Z53.21 Procedure and treatment not carried out due to patient leaving prior to being seen by health care provider